=== PATIENT | male | born 2005 | race Two or more races ===

== ENCOUNTER 2025-03-01 07:17 | Emergency (ER) | payer OTHER ==
[~2025-03-01] VITALS: Ht 175.3 cm; Wt 70.3 kg
[2025-03-01] MEDS ORDERED: 0.9 % SODIUM CHLORIDE 500 ML IV ONE (08:45)
[2025-03-01] MEDS ORDERED: 0.9 % SODIUM CHLORIDE 1,000 ML IV SCH (09:00)
[2025-03-01 09:09] LABS: BASO % 0.4 % (0.1-1.2); EOS # 0.01 (0.04-0.54); EOS % 0.4 % (0.7-7.0); HEMATOCRIT 42.3 % (40.1-51.0); HEMOGLOBIN 14.6 g/dL (13.7-17.5); LYMPH # 0.49 (1.18-3.74); LYMPH % 17.8 % (19.3-53.1); MONO % 10.9 % (4.7-12.5); NEUT # 1.93 (1.56-6.13); NEUT % 69.8 % (34.0-71.1); PLATELET COUNT 152 K/uL (163-369); RED BLOOD COUNT 5.41 M/uL (4.63-6.08); RED CELL DISTRIBUTION WIDTH 12.4 % (11.6-14.4)
[2025-03-01 09:43] LABS: ALBUMIN 4.1 gm/dL (3.4-5.0); BILIRUBIN TOTAL 0.51 mg/dL (0.3-1.2); CALCIUM 8.6 mg/dL (8.5-10.1); CREATININE SERUM 1.06 mg/dL (0.70-1.30); GFR 89.07; GLOBULINA 3.3 G/DL (2.4-3.5); INFLUENZA A AG NEGATIVE (NEGATIVE); POTASSIUM 3.81 mEq/L (3.5-5.1); TOTAL PROTEIN 7.4 gm/dL (6.4-8.2)
[2025-03-01 09:44] LABS: COVID-19 AG NEGATIVE (NEGATIVE)
== END 2025-03-01 10:53 | disposition home or self-care (01) ==
LOC: ER 07:17 → EMR PED 07:31 → ER 07:31 → EMR PED 10:53
PROVIDERS: Emergency Medicine Pediatric Emergency Medicine
DX: R68.89 Other general symptoms and signs (principal); R50.9 Fever, unspecified; Z20.822 Contact with and (suspected) exposure to COVID-19; Z88.1 Allergy status to other antibiotic agents

== ENCOUNTER 2025-03-02 13:00 | Inpatient (IN) | payer OTHER ==
[~2025-03-02] VITALS: Ht 175.3 cm; Wt 70.5 kg
--- NOTE | 2025-03-02 13:21 | NUR ---
PTE REFIEFE DENGUE, FIEBRE DESDE HACE 7 JANSEN Y PETEQUIAS EN EL CUERPO. SE LE CATALINO S/V Y SE UBCOA EN [facility].
[2025-03-02] MEDS ORDERED: RINGERS SOLUTION,LACTATED 1,000 ML IV ONE (13:45)
[2025-03-02] MEDS ORDERED: 0.9 % SODIUM CHLORIDE 1,000 ML IV SCH (13:45)
[2025-03-02 15:22] LABS: URINE APPEARANCE Clear; URINE BILIRRUBIN Negative (NEGATIVE); URINE BLOOD Negative; URINE COLOR Dark Yellow; URINE GLUCOSE Negative (NEGATIVE); URINE KETONE Trace (NEGATIVE); URINE LEUKOCYTE Negative; URINE NITRATE Negative; URINE PROTEIN Trace (NEGATIVE)
[2025-03-02 15:26] LABS: URINE EPITHELIAL CELLS 4.7 uL (0.0-38.8); URINE RBC 3.9 uL (0.0-20.8); URINE WBC 12.4 uL (0.0-23.2)
[2025-03-02 15:35] LABS: URINE BACTERIA 3.6 uL (0.0-1933); URINE CAST 0.29 uL (0.0-1.40)
--- NOTE | 2025-03-02 15:40 | NUR ---
SE ORIENTA PTE Y FAMILIAR SOBRE TX MEDICO EL CUAL REFIERE ENTENDER.SE LE EXTRAEN MUESTRAS BAJO MEDIDAS ASEPTICAS,SE CANALIZA Y SE COLOCAN FLUIDOS DE MANTENIMIENTO.SE UBICA EN HARSHA CON BARANDAS ELEVADAS.
[2025-03-02 15:55] VITALS: BP 120/79
[2025-03-02] MEDS ORDERED: ACETAMINOPHEN 500 MG GEL..CAP PO ONE ×2 (16:06→16:45)
[2025-03-02 16:34] LABS: EOS # 0.04 (0.04-0.54); EOS % 1.4 % (0.7-7.0); HEMATOCRIT 40.2 % (40.1-51.0); HEMOGLOBIN 13.9 g/dL (13.7-17.5); LYMPH # 1.21 (1.18-3.74); LYMPH % 41.6 % (19.3-53.1); MEAN CORPUSCULAR HEMOGLOBIN 27.3 pg (25.6-32.2); MONO # 0.29 (0.24-0.82); NEUT # 1.32 (1.56-6.13); NEUT % 45.3 % (34.0-71.1); RED CELL DISTRIBUTION WIDTH 12.4 % (11.6-14.4)
[2025-03-02 16:40] LABS: PLATELET COUNT 101 K/uL (163-369)
[2025-03-02 16:53] LABS: INR 1.1; PARTIAL THROMBOPLASTIN TIME 33.4 SECONDS (22.0-34.0); PROTHROMBIN TIME 11.9 SECONDS (9.0-11.5)
[2025-03-02 17:01] LABS: ALBUMIN 3.6 gm/dL (3.4-5.0); BILIRUBIN TOTAL 0.52 mg/dL (0.3-1.2); CALCIUM 8.1 mg/dL (8.5-10.1); CREATININE SERUM 0.89 mg/dL (0.70-1.30); GFR 108.98; GLOBULINA 2.9 G/DL (2.4-3.5); POTASSIUM 3.84 mEq/L (3.5-5.1); TOTAL PROTEIN 6.5 gm/dL (6.4-8.2)
[2025-03-02 17:49] VITALS: BP 109/66; O2SAT 97
[2025-03-03 00:20] VITALS: BP 109/72
[2025-03-03 05:37] VITALS: BP 110/67
[2025-03-03 06:54] LABS: ALBUMIN 3.3 gm/dL (3.4-5.0); BILIRUBIN TOTAL 0.48 mg/dL (0.3-1.2); CALCIUM 8.3 mg/dL (8.5-10.1); CREATININE SERUM 0.76 mg/dL (0.70-1.30); GFR 130.76; GLOBULINA 2.6 G/DL (2.4-3.5); POTASSIUM 4.35 mEq/L (3.5-5.1); TOTAL PROTEIN 5.9 gm/dL (6.4-8.2)
[2025-03-03 06:57] LABS: BASO % 0.7 % (0.1-1.2); EOS # 0.06 (0.04-0.54); EOS % 2.1 % (0.7-7.0); HEMATOCRIT 39.7 % (40.1-51.0); HEMOGLOBIN 13.6 g/dL (13.7-17.5); LYMPH # 1.21 (1.18-3.74); LYMPH % 41.9 % (19.3-53.1); MEAN CORPUSCULAR HEMOGLOBIN 27.1 pg (25.6-32.2); MONO # 0.24 (0.24-0.82); MONO % 8.3 % (4.7-12.5); NEUT # 1.33 (1.56-6.13); RED BLOOD COUNT 5.02 M/uL (4.63-6.08); RED CELL DISTRIBUTION WIDTH 12.6 % (11.6-14.4)
[2025-03-03 08:15] VITALS: BP 101/58; O2SAT 98
[2025-03-03 08:30] LABS: PLATELET COUNT 97 K/uL (163-369)
[2025-03-03] MEDS ORDERED: LACTOBACILLUS ACIDOPHILUS 1 CAP CAP PO NR (11:00)
[2025-03-03] MEDS ORDERED: ACETAMINOPHEN 325 MG TABLET PO PRN (11:00)
[2025-03-03] MEDS ORDERED: FAMOTIDINE/PF 20 MG/2 ML VIAL IV NR (11:00)
[2025-03-03 12:19] VITALS: BP 108/60; O2SAT 98
[2025-03-03 16:00] VITALS: BP 115/57; O2SAT 99
[2025-03-03 20:00] VITALS: BP 99/63; O2SAT 99
[2025-03-03] MEDS ORDERED: LACTOBACILLUS ACIDOPHILUS 1 CAP CAP PO SCH (21:00)
[2025-03-04 00:50] VITALS: BP 97/63; O2SAT 100
[2025-03-04 04:10] VITALS: BP 106/68; O2SAT 98
[2025-03-04 07:10] LABS: BASO % 0.6 % (0.1-1.2); EOS # 0.04 (0.04-0.54); EOS % 0.8 % (0.7-7.0); HEMATOCRIT 38.1 % (40.1-51.0); HEMOGLOBIN 12.9 g/dL (13.7-17.5); LYMPH # 3.01 (1.18-3.74); LYMPH % 57.4 % (19.3-53.1); MEAN CORPUSCULAR HEMOGLOBIN 26.9 pg (25.6-32.2); MONO # 0.44 (0.24-0.82); MONO % 8.4 % (4.7-12.5); NEUT # 1.68 (1.56-6.13); RED CELL DISTRIBUTION WIDTH 12.8 % (11.6-14.4)
[2025-03-04 07:49] LABS: ALBUMIN 3.4 gm/dL (3.4-5.0); BILIRUBIN TOTAL 0.48 mg/dL (0.3-1.2); CALCIUM 8.7 mg/dL (8.5-10.1); CREATININE SERUM 0.65 mg/dL (0.70-1.30); GFR 156.61; GLOBULINA 2.6 G/DL (2.4-3.5); POTASSIUM 4.19 mEq/L (3.5-5.1)
[2025-03-04 08:30] LABS: PLATELET COUNT 105 K/uL (163-369)
[2025-03-04] MEDS ORDERED: CETIRIZINE HCL 5 MG/5 ML ML PO SCH (09:00)
[2025-03-04] MEDS ORDERED: FAMOTIDINE/PF 20 MG/2 ML VIAL IV SCH (09:00)
[2025-03-04 09:30] VITALS: BP 100/70; BP 92/56; O2SAT 99
[2025-03-04] MEDS ORDERED: RINGERS SOLUTION,LACTATED 250 ML IV SCH (09:50)
[2025-03-04 11:00] VITALS: BP 101/53
[2025-03-04 12:00] VITALS: BP 105/65; O2SAT 98
[2025-03-04 16:00] VITALS: BP 112/66; O2SAT 98
[2025-03-05 00:52] VITALS: BP 94/62; O2SAT 98
[2025-03-05 04:00] VITALS: BP 103/61; O2SAT 99
[2025-03-05 07:33] LABS: BASO % 0.7 % (0.1-1.2); EOS # 0.05 (0.04-0.54); EOS % 0.8 % (0.7-7.0); HEMATOCRIT 39.2 % (40.1-51.0); HEMOGLOBIN 13.3 g/dL (13.7-17.5); LYMPH # 3.38 (1.18-3.74); LYMPH % 57.3 % (19.3-53.1); MEAN CORPUSCULAR HEMOGLOBIN 27.4 pg (25.6-32.2); MONO # 0.61 (0.24-0.82); MONO % 10.3 % (4.7-12.5); NEUT # 1.76 (1.56-6.13); NEUT % 29.9 % (34.0-71.1); PLATELET COUNT 150 K/uL (163-369); RED BLOOD COUNT 4.85 M/uL (4.63-6.08); RED CELL DISTRIBUTION WIDTH 12.9 % (11.6-14.4)
[2025-03-05 08:03] LABS: ALBUMIN 3.5 gm/dL (3.4-5.0); BILIRUBIN TOTAL 0.72 mg/dL (0.3-1.2); CALCIUM 8.7 mg/dL (8.5-10.1); CREATININE SERUM 0.69 mg/dL (0.70-1.30); GFR 146.18; GLOBULINA 2.7 G/DL (2.4-3.5); POTASSIUM 4.17 mEq/L (3.5-5.1); TOTAL PROTEIN 6.2 gm/dL (6.4-8.2)
[2025-03-05 08:25] VITALS: BP 113/72; O2SAT 100
[2025-03-05 16:00] VITALS: BP 105/63; O2SAT 98
[2025-03-06] VITALS: BP 104/60; O2SAT 99
[2025-03-06 07:31] LABS: BASO % 0.7 % (0.1-1.2); EOS # 0.11 (0.04-0.54); EOS % 2.5 % (0.7-7.0); HEMATOCRIT 38.8 % (40.1-51.0); HEMOGLOBIN 13.1 g/dL (13.7-17.5); LYMPH # 2.28 (1.18-3.74); LYMPH % 51.7 % (19.3-53.1); MEAN CORPUSCULAR HEMOGLOBIN 27.3 pg (25.6-32.2); MONO # 0.56 (0.24-0.82); NEUT # 1.36 (1.56-6.13); NEUT % 30.8 % (34.0-71.1); PLATELET COUNT 187 K/uL (163-369); RED BLOOD COUNT 4.79 M/uL (4.63-6.08); RED CELL DISTRIBUTION WIDTH 12.8 % (11.6-14.4)
[2025-03-06 07:39] LABS: ALBUMIN 3.6 gm/dL (3.4-5.0); BILIRUBIN TOTAL 0.6 mg/dL (0.3-1.2); CALCIUM 8.8 mg/dL (8.5-10.1); CREATININE SERUM 0.8 mg/dL (0.70-1.30); GFR 123.24; GLOBULINA 2.9 G/DL (2.4-3.5); POTASSIUM 4.33 mEq/L (3.5-5.1); TOTAL PROTEIN 6.5 gm/dL (6.4-8.2)
[2025-03-06 08:20] VITALS: BP 111/70; O2SAT 99
[2025-03-06 08:38] LABS: MONO % 12.7 % (4.7-12.5)
[2025-03-06] MEDS ORDERED: PRAMOXINE HCL/CALAMINE 180 ML BOTTLE TOP PRN (10:30)
[2025-03-06 15:30] VITALS: BP 99/60; O2SAT 99
[2025-03-07] VITALS: BP 106/70; O2SAT 99
[2025-03-07 06:45] LABS: BASO % 0.8 % (0.1-1.2); EOS # 0.12 (0.04-0.54); EOS % 2.4 % (0.7-7.0); HEMATOCRIT 38.8 % (40.1-51.0); HEMOGLOBIN 13.1 g/dL (13.7-17.5); LYMPH % 43.4 % (19.3-53.1); MEAN CORPUSCULAR HEMOGLOBIN 26.7 pg (25.6-32.2); MONO # 0.65 (0.24-0.82); NEUT # 1.89 (1.56-6.13); NEUT % 37.2 % (34.0-71.1); PLATELET COUNT 230 K/uL (163-369); RED CELL DISTRIBUTION WIDTH 12.6 % (11.6-14.4)
[2025-03-07 07:26] LABS: ALBUMIN 3.5 gm/dL (3.4-5.0); BILIRUBIN TOTAL 0.52 mg/dL (0.3-1.2); CALCIUM 8.5 mg/dL (8.5-10.1); CREATININE SERUM 0.67 mg/dL (0.70-1.30); GFR 151.23; GLOBULINA 2.8 G/DL (2.4-3.5); POTASSIUM 4.31 mEq/L (3.5-5.1); TOTAL PROTEIN 6.3 gm/dL (6.4-8.2)
[2025-03-07 07:47] LABS: MONO % 12.8 % (4.7-12.5)
[2025-03-07 08:25] VITALS: BP 101/61; O2SAT 99
== END 2025-03-07 09:52 | disposition home or self-care (01) | DRG 866 ==
LOC: EMR PED 13:16 → ER 13:16 → PED 16:32 → SEC-K 16:32 → PED 16:42
PROVIDERS: Emergency Medicine Pediatric Emergency Medicine; General Practice; ADMIT Emergency Medicine; ATTEND Emergency Medicine
PROC: 8E0ZXY6 Isolation (ICD-10-PCS; principal; 2025-03-02)
DX: A90 Dengue fever [classical dengue] (principal); E86.0 Dehydration; D72.819 Decreased white blood cell count, unspecified; D69.6 Thrombocytopenia, unspecified; R74.01 Elevation of levels of liver transaminase levels